=== PATIENT | male | born 1995 | race Caucasian/White ===

== ENCOUNTER 2016-06-04 13:11 | Emergency (ER) | payer MEDICAID ==
[~2016-06-04] VITALS: Ht 175.3 cm; Wt 142.9 kg
[2016-06-04 13:34] VITALS: BP 130/87
[2016-06-04] MEDS ORDERED: KETOROLAC TROMETHAMINE INJ 30 MG/ML VIAL ONE (13:40)
[2016-06-04] MEDS ORDERED: DEXAMETHASONE SOD PHOSPHATE 10 MG/ML VIAL ONE (13:40)
[2016-06-04] MEDS ORDERED: DEXAMETHASONE SOD PHOSPHATE 4 MG/ML VIAL IM ONE (14:00)
[2016-06-04] MEDS ORDERED: KETOROLAC TROMETHAMINE INJ 30 MG/ML VIAL IM ONE (14:00)
== END 2016-06-04 14:04 | disposition home or self-care (01) ==
LOC: ER 13:19
DX: J02.9 Acute pharyngitis, unspecified (principal)
CPT/HCPCS: A4606; J1100; J1885; Z7610

== ENCOUNTER 2016-09-05 21:57 | Emergency (ER) | payer MEDICAID ==
--- NOTE | 2016-09-05 22:11 | NUR ---
CALLED FOR TRIAGE; STATES "I WILL COME BACK IF WORSE"
== END 2016-09-05 22:12 | disposition left against medical advice (07) ==
LOC: ER 21:57
DX: Z53.21 Procedure and treatment not carried out due to patient leaving prior to being seen by health care provider (principal)

== ENCOUNTER 2016-09-06 21:57 | Emergency (ER) | payer MEDICAID ==
[~2016-09-06] VITALS: Ht 167.6 cm; Wt 122.5 kg
[2016-09-06 22:08] VITALS: BP 157/98
== END 2016-09-06 22:49 | disposition home or self-care (01) ==
LOC: ER 22:05
DX: L03.113 Cellulitis of right upper limb (principal)
CPT/HCPCS: 99283; A4606; Z7610

== ENCOUNTER 2016-09-11 21:22 | Emergency (ER) | payer MEDICAID ==
[~2016-09-11] VITALS: Ht 172.7 cm; Wt 138.3 kg
[2016-09-11 21:28] VITALS: BP 137/87
== END 2016-09-11 22:03 | disposition home or self-care (01) ==
LOC: ER 21:22
DX: R07.89 Other chest pain (principal); F41.9 Anxiety disorder, unspecified; F17.200 Nicotine dependence, unspecified, uncomplicated; F98.8 Other specified behavioral and emotional disorders with onset usually occurring in childhood and adolescence
CPT/HCPCS: A4606; Z7610

== ENCOUNTER 2017-04-09 19:14 | Emergency (ER) | payer MEDICAID ==
[~2017-04-09] VITALS: Ht 172.7 cm; Wt 136.1 kg
--- NOTE | 2017-04-09 19:34 | NUR ---
PT BB SELF FROM HOME WITH C/C OF SOB X 1 WEEK WITH C/O OF BILATERAL LOWER LEG SWELLING.PT STATES HE HAD A RECENT TRIP TO . STATES NO FLU LIKE SYMPTOMS. PT AMBULATORY WITH STEADY GAIT WALKING TO BED. PT IS ABLE TO SPEAK IN FULL SENTENCES WITH REGULAR RESPIRSOTRY RATE AND RYTHM. PT SKIN IS WARM AND PINK. NO NOTEABLE SWELLING OR PITTING EDEMA OBSERVED. O2 SAT 99% ON ROOM AIR. Shea AARON AT BEDSIDE.
--- NOTE | 2017-04-09 21:00 | NUR ---
Patient discharged to home in stable condition. Written and verbal after care instructions given. Patient verbalizes understanding of instruction AND RX. AMBULATED OUT WITH STEADY GAIT. GIRLFRIEND DROVE PT HOME. VSS NAD NOTED.
[2017-04-09 21:03] VITALS: BP 124/68
== END 2017-04-09 21:05 | disposition home or self-care (01) ==
LOC: ER 19:16
DX: K21.9 Gastro-esophageal reflux disease without esophagitis (principal); E66.01 Morbid (severe) obesity due to excess calories; Z68.41 Body mass index [BMI] 40.0-44.9, adult
CPT/HCPCS: 71045; 93005; 99284; A4606; Z7610

== ENCOUNTER 2017-04-24 16:08 | Emergency (ER) | payer MEDICAID ==
[~2017-04-24] VITALS: Ht 175.3 cm; Wt 136.1 kg
[2017-04-24 16:23] VITALS: BP 116/78
[2017-04-24] MEDS ORDERED: LORAZEPAM 1 MG TABLET PO STA (16:41)
[2017-04-24] MEDS ORDERED: LORAZEPAM 1 MG TABLET ONE (16:46)
== END 2017-04-24 16:59 | disposition home or self-care (01) ==
LOC: ER 16:10
DX: F41.9 Anxiety disorder, unspecified (principal)
CPT/HCPCS: A4606; Z7610

== ENCOUNTER 2017-08-29 05:54 | Emergency (ER) | payer MEDICAID, OTHER ==
[~2017-08-29] VITALS: Ht 175.3 cm; Wt 140.6 kg
[2017-08-29 06:04] VITALS: BP 122/75
[2017-08-29] MEDS ORDERED: DEXAMETHASONE 1 MG TABLET ONE (06:28)
[2017-08-29] MEDS ORDERED: DEXAMETHASONE 4 MG TABLET ONE (06:28)
[2017-08-29] MEDS ORDERED: PENICILLIN G BENZATHINE 2.4 MMU/4 ML ML IM ONE ×2 (06:29→06:30)
[2017-08-29] MEDS ORDERED: IBUPROFEN 400 MG TABLET ONE (06:29)
[2017-08-29] MEDS ORDERED: DEXAMETHASONE 1 MG TABLET PO ONE (06:30)
[2017-08-29] MEDS ORDERED: IBUPROFEN 400 MG TABLET PO ONE (06:30)
== END 2017-08-29 06:44 | disposition home or self-care (01) ==
LOC: ER 05:54
DX: J02.9 Acute pharyngitis, unspecified (principal)
CPT/HCPCS: A4606; J0558; J8540; Z7610

== ENCOUNTER 2018-03-07 14:38 | Emergency (ER) | payer SELFPAY ==
[~2018-03-07] VITALS: Ht 167.6 cm; Wt 150.6 kg
[2018-03-07 14:43] VITALS: BP 139/90
--- NOTE | 2018-03-07 15:16 | NUR ---
Patient discharged to home in stable condition. Written and verbal after care instructions given. Patient verbalizes understanding of instruction.
== END 2018-03-07 15:18 | disposition home or self-care (01) ==
LOC: ER 14:39
DX: F41.9 Anxiety disorder, unspecified (principal); F20.9 Schizophrenia, unspecified
CPT/HCPCS: A4606; Z7610

== ENCOUNTER 2019-11-02 07:31 | Emergency (ER) | payer OTHER ==
[~2019-11-02] VITALS: Ht 177.8 cm; Wt 154.2 kg
--- NOTE | 2019-11-02 07:38 | NUR ---
bib self c/o burning sensation upon urination and whitish discharged. Patient a/ox4, breathing even and unlabored, no sob noted. Ambulatory with steady gait. No distress noted.
--- NOTE | 2019-11-02 07:43 | NUR ---
URINE SPECIMEN COLLECTED AND SENT TO LAB.
[2019-11-02] MEDS ORDERED: AZITHROMYCIN 250 MG TABLET ONE (07:51)
[2019-11-02] MEDS ORDERED: CEFTRIAXONE 500 MG VIAL ONE (07:51)
[2019-11-02] MEDS ORDERED: LIDOCAINE /MPF 1% VIAL 5 ML VIAL ONE (07:52)
[2019-11-02] MEDS ORDERED: CEFTRIAXONE 500 MG VIAL IM ONE (08:00)
[2019-11-02] MEDS ORDERED: AZITHROMYCIN 250 MG TABLET PO ONE (08:00)
[2019-11-02 08:26] VITALS: BP 146/87
[2019-11-02 08:29] LABS: APPEARANCE,URINE CLOUDY (CLEAR); BILIRUBIN,URINE NEGATIVE (NEGATIVE); BLOOD, URINE NEGATIVE Ery/uL (NEGATIVE); COLOR,URINE YELLOW (YELLOW); KETONES,URINE NEGATIVE (NEGATIVE); LEUKOCYTE ESTERASE ,URINE TRACE (NEGATIVE); NITRITE, URINE NEGATIVE (NEGATIVE); PROTEIN,URINE NEGATIVE (NEGATIVE); UGLUCOSE NEGATIVE (NEGATIVE); UROBILINOGEN,URINE 0.2 EU/dL (0.2)
[2019-11-02 08:49] LABS: RBC,URINE 0-2 /HPF (0-2)
[2019-11-02 08:50] LABS: BACTERIA,URINE Few /HPF (None Seen); SQUAMOUS EPITHELIAL CELL,UR Rare /HPF (None Seen); URINE AMORPHOUS URATE Few /HPF (None Seen)
[2019-11-02 08:51] LABS: WBC,URINE 51-80 /HPF (0-3)
[2019-11-03 13:07] LABS: HIV SCRN 4G wRFX Non Reactive (Non Reactive)
== END 2019-11-02 08:27 | disposition home or self-care (01) ==
LOC: ER 07:37
DX: A54.9 Gonococcal infection, unspecified (principal); F41.9 Anxiety disorder, unspecified; F20.9 Schizophrenia, unspecified
CPT/HCPCS: 36415; 81001; 87086; 87389; 87491; 87591; 96372; 99283; J0696; J3490; 81000-TC

== ENCOUNTER 2021-02-21 22:42 | Inpatient (IN) | payer OTHER ==
[~2021-02-21] VITALS: Ht 177.8 cm; Wt 163.3 kg
--- NOTE | 2021-02-21 23:16 | NUR ---
PT AAOX4. BIBSELF C/O HEADACHE SINCE SUNDAY AFTER EATING, +COLD SWEATS, +N/V. PLACED IN BED 9 ON MONITOR AND PULSE OX.
[2021-02-22] MEDS ORDERED: METOCLOPRAMIDE HCL 10 MG/2 ML VIAL ONE (01:29)
[2021-02-22] MEDS ORDERED: METOCLOPRAMIDE HCL 10 MG/2 ML VIAL IV ONE (01:30)
[2021-02-22] MEDS ORDERED: IV NS 0.9% 1,000 ML BAG IV ONE (01:30)
[2021-02-22 01:40] LABS: BASOPHILS # (AUTO) 0.1 K/uL (0.0-0.2); BASOPHILS % (AUTO) 0.6 % (0.0-2.0); EOSINOPHILS % (AUTO) 0.1 % (0.0-6.0); HEMATOCRIT 46 % (39-51); HEMOGLOBIN 15.8 g/dL (13.5-17.5); LYMPHOCYTES # (AUTO) 1.3 K/uL (0.8-4.8); LYMPHOCYTES % (AUTO) 11.1 % (20.0-44.0); MEAN CORPUSCULAR HGB CONC 34 g/dl (31.0-36.0); MEAN CORPUSCULAR VOLUME 87 fL (80-96); MONOCYTES # (AUTO) 0.9 K/uL (0.1-1.30); MONOCYTES % (AUTO) 8.1 % (2.0-12.0); NEUTROPHILS # (AUTO) 9.3 K/uL (1.8-8.9); NEUTROPHILS % (AUTO) 80.1 % (43.0-81.0); PLATELET COUNT (AUTO) 275 K/uL (150-450); RED BLOOD CELL COUNT(AUTO) 5.29 MIL/uL (4.5-6.0); WHITE BLOOD COUNT (AUTO) 11.6 K/uL (4.3-11.0)
[2021-02-22 01:50] LABS: CALCIUM, SERUM 8.4 mg/dL (8.5-10.1); CREATININE 1.1 mg/dL (0.6-1.3); POTASSIUM 4.1 mmol/L (3.5-5.1)
[2021-02-22 02:03] LABS: ALBUMIN 3.8 g/dL (3.4-5.0); BILIRUBIN,DIRECT 0.2 mg/dL (0.0-0.2); BILIRUBIN,TOTAL 1.1 mg/dL (0.2-1.0); TOTAL PROTEIN, SERUM 7.8 g/dL (6.4-8.2)
--- NOTE | 2021-02-22 02:11 | NUR ---
MRSA SWAB COLLECTED AND SENT TO LAB. PATIENT'S BELONGINGS LIST DONE.
[2021-02-22] MEDS ORDERED: IOHEXOL-350 100 ML VIAL IV ONE (03:26)
[2021-02-22] MEDS ORDERED: IV NS 0.9% 250 ML IV ONE (03:26)
[2021-02-22] MEDS ORDERED: MORPHINE SULFATE INJ 4 MG/ML DISP.SYRIN ONE (03:29)
[2021-02-22] MEDS ORDERED: methylPREDNISolone SOD SUCC 125 MG/2ML VIAL IV ONE (03:30)
[2021-02-22] MEDS ORDERED: ONDANSETRON HCL/PF 4 MG/2 ML VIAL IVP PRN (03:30)
[2021-02-22] MEDS ORDERED: MORPHINE SULFATE INJ 2 MG/ML DISP.SYRIN IV ONE (03:30)
[2021-02-22] MEDS ORDERED: ACETAMINOPHEN 325 MG TABLET PO PRN (03:30)
--- NOTE | 2021-02-22 03:53 | NUR ---
PT BRUGHT BACK FROM CT
[2021-02-22] MEDS: IV LR 1000 ML 1,000 ML IV SCH ×2 (06:30→08:30)
[2021-02-22] MEDS ORDERED: methylPREDNISolone SOD SUCC 125 MG/2ML VIAL ONE (06:31)
[2021-02-22] MEDS ORDERED: MORPHINE SULFATE INJ 2 MG/ML DISP.SYRIN ONE ×2 (06:31→10:35)
[2021-02-22] MEDS: MORPHINE SULFATE INJ 2 MG/ML DISP.SYRIN IV PRN ×4 (06:33→23:13)
[2021-02-22] MEDS ORDERED: ALPR2TAB2 PO (08:29)
[2021-02-22] MEDS ORDERED: GABA-532 PO (08:29)
[2021-02-22] MEDS ORDERED: FLUO20CA42 PO (08:29)
[2021-02-22] MEDS: ENOXAPARIN SODIUM 40 MG/0.4 ML DISP.SYRIN SQ SCH (09:00)
[2021-02-22] MEDS ORDERED: ENOXAPARIN SODIUM 40 MG/0.4 ML DISP.SYRIN SQ ONE (09:48)
--- NOTE | 2021-02-22 11:15 | NUR ---
MOTHER ELVIA OR
[2021-02-22] MEDS ORDERED: LORAZEPAM INJ 2 MG/ML VIAL IV PRN (12:00)
[2021-02-22] MEDS ORDERED: ALPRAZOLAM 1 MG TABLET PO PRN (12:00)
[2021-02-22] MEDS: IV NS 0.9% 1,000 ML IV SCH ×2 (12:30→21:33)
[2021-02-22] MEDS ORDERED: LORAZEPAM INJ 2 MG/ML VIAL ONE (13:40)
[2021-02-22] MEDS: VALPROATE 250 MG in IV D5W 100 ML IV SCH ×2 (13:45→20:09)
--- NOTE | 2021-02-22 16:39 | NUR ---
REPORT GIVEN TO GEOFF ESTES FOR BALJINDER
--- NOTE | 2021-02-22 19:20 | NUR ---
RN opening notes Received Pt from morning nurse. Pt is resting in bed comfortably. Pt is alert and orientedX4. Respiration is normal in room air. No SOB. No S/S of distress noted. IV site at LAc# 18 is clean, intact, flushes well and SL. Safety precautions is maintained. Bed at low position, brakes locked, side rails upX2, call light is within reach. Will continue to monitor.
[2021-02-22 20:00] VITALS: BP 113/67
[2021-02-22] MEDS: GABAPENTIN 100 MG CAPSULE PO SCH (21:29)
--- NOTE | 2021-02-22 21:29 | NUR ---
RN notes Pt refused gabapentin. Explained risks and benefits. Pt keep refusing. Pt stated "I'm cool!" Thank you." returned med to pyxis. Will continue to monitor.
--- NOTE | 2021-02-22 23:13 | NUR ---
RN notes Pt is complaining of headache and generalized pain and requesting morphine. Administered morphine 2 mg/iv push/prn as ordered for pain. VS is stable. Safety precautions is maintained. Will continue to monitor.
[2021-02-23] MEDS: VALPROATE 250 MG in IV D5W 100 ML IV SCH ×3 (04:00→20:03)
[2021-02-23] MEDS: MORPHINE SULFATE INJ 2 MG/ML DISP.SYRIN IV PRN ×5 (04:03→21:29)
--- NOTE | 2021-02-23 05:53 | NUR ---
MS RN CLOSING NOTES: PATIENT SITTING AT EOB ON ASSESSMENT. NAD. VSS. CALM, COOPERATIVE AND COMMUNICATIVE. ALERT AND ORIENTED TO BASELINE. NO C/O PAIN. IV INFUSING WITHOUT COMPLICATION. NO S/SX OF COMPROMISED TISSUE INTEGRITY TO OR SURROUNDING CATHETER INSERTION SITE. PATIENT DENIES PAIN AT THIS TIME.
[2021-02-23 06:19] LABS: BASOPHILS # (AUTO) 0.1 K/uL (0.0-0.2); BASOPHILS % (AUTO) 1.2 % (0.0-2.0); EOSINOPHILS % (AUTO) 0.9 % (0.0-6.0); HEMATOCRIT 45 % (39-51); HEMOGLOBIN 15.5 g/dL (13.5-17.5); LYMPHOCYTES # (AUTO) 2.3 K/uL (0.8-4.8); LYMPHOCYTES % (AUTO) 24.9 % (20.0-44.0); MEAN CORPUSCULAR HGB CONC 34 g/dl (31.0-36.0); MEAN CORPUSCULAR VOLUME 87 fL (80-96); MONOCYTES % (AUTO) 10.6 % (2.0-12.0); NEUTROPHILS # (AUTO) 5.7 K/uL (1.8-8.9); NEUTROPHILS % (AUTO) 62.4 % (43.0-81.0); PLATELET COUNT (AUTO) 256 K/uL (150-450); RED BLOOD CELL COUNT(AUTO) 5.16 MIL/uL (4.5-6.0); WHITE BLOOD COUNT (AUTO) 9.1 K/uL (4.3-11.0)
[2021-02-23 07:00] LABS: ALBUMIN 3.4 g/dL (3.4-5.0); BILIRUBIN,TOTAL 1.2 mg/dL (0.2-1.0); CALCIUM, SERUM 8.5 mg/dL (8.5-10.1); MAGNESIUM 2.3 mg/dL (1.8-2.4); PHOSPHORUS 3.4 mg/dL (2.5-4.9); POTASSIUM 4.2 mmol/L (3.5-5.1); TOTAL PROTEIN, SERUM 7.1 g/dL (6.4-8.2)
--- NOTE | 2021-02-23 07:30 | NUR ---
MS RN MORNING NOTES RECEIVED REPORT FROM NIGHT NURSE. PT IN BED AWAKE, A&OX4. PT IS ON ROOM AIR AND DISPLAYS NO S/S OF RESPIRATORY DISTRESS OR DISCOMFORT AT THIS TIME. LEFT AC #18G IN PLACE & PATENT WITH NS RUNNING @ 100ML/HR. SAFETY MEASURES IN PLACE. PATIENT WAS EDUCATED ON USE OF CALL LIGHT FOR ASSISTANCE. BED IS LOCKED AND IN LOWEST POSITION. WILL CONTINUE TO MONITOR PT.
[2021-02-23 07:38] LABS: C-REACTIVE PROTEIN 0.2 mg/dL (0.0-0.9)
[2021-02-23 08:00] VITALS: BP 104/58
[2021-02-23] MEDS: ENOXAPARIN SODIUM 40 MG/0.4 ML DISP.SYRIN SQ SCH (08:15)
[2021-02-23] MEDS: FLUOXETINE HCL 20 MG CAPSULE PO SCH (08:15)
[2021-02-23] MEDS: IV NS 0.9% 1,000 ML IV SCH ×2 (12:19→18:18)
[2021-02-23 16:00] VITALS: BP 107/47
--- NOTE | 2021-02-23 18:26 | NUR ---
MS RN CLOSING NOTES PT IN BED WITH EYES CLOSED, ABLE TO BE AROUSED. PT DISPLAYS NO S/S OF RESPIRATORY DISTRESS OR DISCOMFORT AT THIS TIME. LEFT AC #18G IN PLACE & PATENT WITH NS RUNNING @ 100ML/HR. SAFETY MEASURES IN PLACE. BED IS LOCKED AND IN LOWEST POSITION WITH CALL LIGHT IN REACH. WILL ENDORSE BALJINDER TO THE REIMBURSEMENT MANAGER NURSE.
--- NOTE | 2021-02-23 19:30 | NUR ---
MS RN OPENING NOTES RECEIVED PT IN BED AWAKE. A/O X4. PT STABLE ON ROOM AIR. NO S/S OF RESPIRATORY DISTRESS OR DISCOMFORT AT THIS TIME. LEFT AC #18G INTACT AND PATENT WITH NS RUNNING @ 100ML/HR. SAFETY PRECAUTIONS IN PLACE. BED IN LOWEST LOCKED POSITION, HOB ELEVATED, SIDE RAILS UP X2, AND CALL LIGHT AND TABLE WITHIN REACH. WILL CONTINUE TO MONITOR.
[2021-02-23 20:00] VITALS: BP 121/70
--- NOTE | 2021-02-23 21:30 | NUR ---
RN NOTES Complained of terrible headache. Morphine 2 mg IV given as ordered, V/S stable
[2021-02-23] MEDS: GABAPENTIN 100 MG CAPSULE PO SCH (22:00)
[2021-02-24] MEDS: IV NS 0.9% 1,000 ML IV SCH (06:24)
[2021-02-24] MEDS: VALPROATE 250 MG in IV D5W 100 ML IV SCH (06:25)
--- NOTE | 2021-02-24 06:29 | NUR ---
RN NOTE GAVE NS 0.9% @ 100 ML/HR AT 0500. gAVE DEPACON 250 MG @ 102.5 ML/HR AT 0500. COMPUTER WAS DOWN.
--- NOTE | 2021-02-24 06:39 | NUR ---
MS RN CLOSING NOTES PT IN BED EYES CLOSED, EASILY AROUSABLE. A/O X4. PT STABLE ON ROOM AIR. NO S/S OF RESPIRATORY DISTRESS OR DISCOMFORT AT THIS TIME. LEFT AC #18G INTACT AND PATENT WITH NS RUNNING @ 100ML/HR. ALL NEEDS MET AT THIS TIME. SAFETY PRECAUTIONS IN PLACE AT ALL TIMES. BED IN LOWEST LOCKED POSITION, HOB ELEVATED, SIDE RAILS UP X2, AND CALL LIGHT AND TABLE WITHIN REACH. WILL ENDORSE TO ONCOMING NURSE FOR BALJINDER.
[2021-02-24 06:44] LABS: BASOPHILS % (AUTO) 0.6 % (0.0-2.0); HEMATOCRIT 45 % (39-51); HEMOGLOBIN 15.2 g/dL (13.5-17.5); LYMPHOCYTES # (AUTO) 2.8 K/uL (0.8-4.8); LYMPHOCYTES % (AUTO) 37.8 % (20.0-44.0); MEAN CORPUSCULAR HGB CONC 34 g/dl (31.0-36.0); MEAN CORPUSCULAR VOLUME 87 fL (80-96); MONOCYTES # (AUTO) 0.6 K/uL (0.1-1.30); MONOCYTES % (AUTO) 8.7 % (2.0-12.0); NEUTROPHILS # (AUTO) 3.8 K/uL (1.8-8.9); NEUTROPHILS % (AUTO) 50.9 % (43.0-81.0); PLATELET COUNT (AUTO) 258 K/uL (150-450); RED BLOOD CELL COUNT(AUTO) 5.13 MIL/uL (4.5-6.0); WHITE BLOOD COUNT (AUTO) 7.4 K/uL (4.3-11.0)
[2021-02-24 06:54] LABS: LIPASE 170 U/L (73-393)
[2021-02-24 07:02] LABS: C-REACTIVE PROTEIN < 0.2 mg/dL (0.0-0.9)
[2021-02-24 07:08] LABS: CALCIUM, SERUM 8.6 mg/dL (8.5-10.1); POTASSIUM 3.8 mmol/L (3.5-5.1)
--- NOTE | 2021-02-24 07:30 | NUR ---
MS RN OPENING NOTES RECEIVED PATIENT IN BED AWAKE. A/O X4. PATIENT STABLE ON ROOM AIR. NO S/S OF RESPIRATORY DISTRESS OR DISCOMFORT NOTED AT THIS TIME. NO COMPLAINS OF PAIN. LEFT AC #18G INTACT AND PATENT WITH NS RUNNING @ 100ML/HR. SAFETY PRECAUTIONS IN PLACE. BED IN LOWEST LOCKED POSITION, HOB ELEVATED, SIDE RAILS UP X2, AND CALL LIGHT AND TABLE WITHIN REACH. WILL CONTINUE TO MONITOR.
[2021-02-24 08:00] VITALS: BP 116/69
[2021-02-24] MEDS: FLUOXETINE HCL 20 MG CAPSULE PO SCH (10:43)
[2021-02-24] MEDS: ENOXAPARIN SODIUM 40 MG/0.4 ML DISP.SYRIN SQ SCH (10:44)
--- NOTE | 2021-02-24 12:15 | NUR ---
COORDINATOR OF EVALUATION NOTES: DISCHARGE PATIENT IN GOOD CONDITION.VITAL SIGNS NORMAL. PATIENT VERBALIZED UNDERSTANDING OF INSTRUCTIONS.IV ACCESS REMOVED.COVERED WITH GAUZE.NO BLEEDING NOTED. DISCHARGE PATIENT BREATHING IN ROOM AIR. BELONGINGS ACCOUNTED AND SIGNED FOR.ARM BAND REMOVED. WALK WITH THE PATIENT TO THE LOBBY. SISTER PICK THE PATIENT UP AT 1140 IN STABLE CONDITION. MD AND CHARGE NURSE AWARE OF THE DISCHARGE.
== END 2021-02-24 11:41 | disposition home or self-care (01) | DRG 282 ==
LOC: ER 22:45 → TRANSITION 02-22 05:56 → MED 02-22 16:42
PROVIDERS: ADMIT Internal Medicine; ATTEND Internal Medicine
DX: K85.90 Acute pancreatitis without necrosis or infection, unspecified (principal); Z68.43 Body mass index [BMI] 50.0-59.9, adult; A08.4 Viral intestinal infection, unspecified; F41.9 Anxiety disorder, unspecified; R51.9 Headache, unspecified; R11.11 Vomiting without nausea; Z20.822 Contact with and (suspected) exposure to COVID-19; H61.20 Impacted cerumen, unspecified ear; E66.01 Morbid (severe) obesity due to excess calories
CPT/HCPCS: 36415; 70450-TC; 70496-TC; 76705-TC; 80048-TC; 80053-TC; 80076-TC; 83605-TC; 83690-TC; 83735-TC; 84100-TC; 85025-TC; 85730-TC; 86140-TC; 87081-TC; C9803; G0378; J1650; J2060; J2270; J2405; J2765; J2930; J3490; J7030; J7050; J7060; J7120; Q9967